=== PATIENT | female | born 1990 | race Caucasian/White ===

== ENCOUNTER 2016-07-08 11:06 | Emergency (ER) | payer OTHER ==
[~2016-07-08 11:06] MED LIST: ACYCLOVIR PO; BIRTH CONTROL; BIRTH CONTROL PILL PO; CERTAGEN PO; CIPRO PO; CLARITIN D PO; DEPO-PROVER150 MG/M1; FLEXERIL10 MG PO; IBUPROFEN PO; IBUPROFEN800 MG PO; IMPLANON68 MG/IMPL SQ; MACROBID100 MG PO; NO MEDICATIONS; PHENERGAN12.5 MG PO; PRENATAL1 TA1 PO; TAMIFLU75 M1 PO; TYLENOL #3 PO; ULTRAM PO; VOLTAREN75 MG PO; [UNRECOGNIZED DRUG - REMARK]
[2016-07-08] MEDS ORDERED: VALACYCLOVIR500 MG PO (11:16)
[2016-07-08] MEDS ORDERED: PRENATAL TABLE1 EAC1 PO (11:17)
[2016-07-08] MEDS ORDERED: SERTRALINE HCL50 M1 PO (11:17)
== END 2016-07-08 12:41 ==
LOC: SED 11:06
DX: S69.91XA Unspecified injury of right wrist, hand and finger(s), initial encounter (principal); F32.9 Major depressive disorder, single episode, unspecified; Z79.899 Other long term (current) drug therapy; W01.0XXA Fall on same level from slipping, tripping and stumbling without subsequent striking against object, initial encounter; Y92.009 Unspecified place in unspecified non-institutional (private) residence as the place of occurrence of the external cause
CPT/HCPCS: 99284